=== PATIENT | male | born 1980 | race Caucasian/White ===

== ENCOUNTER 2020-12-09 21:33 | Emergency (ER) | payer OTHER, SELFPAY ==
[2020-12-09 21:35] VITALS: BP 184/116; PULSE 81; RESP 15; TEMP 36.3; O2SAT 97; BMI 40.6
--- NOTE | 2020-12-09 22:16 | RAD_ITS ---
STUDY: X-RAY - RIGHT KNEE REASON FOR EXAM: Male, 39 years old. knee pain TECHNIQUE: 4 view(s) of the knee. COMPARISON: None. FINDINGS: Normal visualized distal femur. Normal visualized proximal tibia and fibula. Normal proximal tibiofibular articulation. Normal medial femorotibial compartment. Normal lateral femorotibial compartment. Normal patellofemoral articulation. The soft tissue structures are unremarkable. RAD/Knee 4 or More Views IMPRESSION: Normal x-ray examination of the knee. Electronically Signed: Jose Lee DO at 22:51 EDT Tel , Service support ,
--- NOTE | 2020-12-09 22:17 | EX.ED.DYSGE1 ---
HPI History of Present Illness Chief Complaint: Lower Extremity Injury Narrative Narrative: 39-year-old male presenting with nontraumatic right knee pain. He states he started having swelling this morning. He denies any injury. He is able to ambulate. He states it does not particularly hurt that bad. He used Tylenol and Aleve today. He also put icy hot on his knee. Patient feels otherwise well. He has no history of gout. PFSH PFSH Home Medications naproxen [Naprosyn] 500 mg PO BID #30 tab 12/09/20 [Rx Last Taken Unknown] Allergy/AdvReac Type Severity Reaction Status Date / Time acetaminophen [From Vicodin] Allergy Upset Verified 12/09/20 21:34 Stomach hydrocodone [From Vicodin] Allergy Upset Verified 12/09/20 21:34 Stomach Surgical History Hx of tonsillectomy Social History Smoking Status: Current every day smoker tobacco type: cigarettes ROS ROS ED Constitutional Constitutional ED: Denies chills or fever(s) Eyes Eyes: Denies blurry vision or change in vision ENT ENT ED: Denies ear pain or rhinorrhea Cardiovascular Cardiovascular: Denies chest pain or palpitations Respiratory/Chest Respiratory/Chest: Denies cough, dyspnea or sputum Gastrointestinal Gastrointestinal: Denies abdominal pain, nausea or vomiting Genitourinary Genitourinary ED: Denies dysuria or hematuria Musculoskeletal Musculoskeletal: Reports other Details: Right knee pain and swelling Integumentary Denies abscess or rash EXAM Physical Exam Const Vital Signs: 12/09/20 21:35 Temperature 97.3 F L Temperature Source Temporal Pulse Rate 81 Respiratory Rate 15 Blood Pressure 184/116 H Blood Pressure Mean 138 Pulse Ox 97 Oxygen Delivery Method Room Air Positive well nourished General Appearance ED: NAD HEENT Reports moist mucous membranes Negative for trauma Eyes PERRL and EOMs intact bilaterally Resp normal respiratory effort Cardio regular rate and regular rhythm Extremity Extremity Narrative: Right knee is swollen. There is minimal tenderness to palpation. Patient able to flex and extend his knee although there is some limitation in full extension and full flexion. No ligament laxity. Neuro oriented x3 Sensorium / Orientation: alert Psych mental status grossly normal Skin no rashes or lesions noted and no wounds MDM MDM MDM Narrative Medical decision making narrative: Patient presenting with right knee swelling. He does not appear to have any significant pain. He is able to range his right knee. He has no systemic signs or symptoms of a septic knee. He denies any trauma to the knee. I did obtain x-ray of the right knee which on my interpretation shows no acute process. The radiologist does agree. Patient is placed in an [place]mond wrap. He is counseled on ice and elevation. I did give him follow-up with orthopedics. Patient stable his discharge at this time. Impression: 1. Right knee sprain Radiography Diagnostic Testing: Radiology Impression Knee X-Ray 12/09/20 22:16 IMPRESSION: Normal x-ray examination of the knee. Electronically Signed: Jose Lee DO at 22:51 EDT Tel , Service support , Discharge Plan Triage Chief Complaint: Lower Extremity Injury ED Provider: Westley Caraballo Dx/Rx/DC Orders Instructions: ED Knee Sprain Prescriptions: New naproxen [Naprosyn] 500 mg tablet 500 mg PO BID Qty: 30 RF: 0 Primary Care Provider: Asad Acosta Referrals: Dm Bledsoe DO [STAFF PHYSICIAN] - As soon as possible Asad Acosta [Primary Care Provider] - Disposition Disposition: Home, Self Care Discharge Date/Time: 12/09/20 23:11
[2020-12-09 23:07] VITALS: BP 159/103; PULSE 68; RESP 15
== END 2020-12-09 23:11 | disposition home or self-care (01) ==
PROVIDERS: Emergency Provider Student in an Organized Health Care Education/Training Program; PCP Internal Medicine
DX: S83.91XA Sprain of unspecified site of right knee, initial encounter (principal); F17.210 Nicotine dependence, cigarettes, uncomplicated; X58.XXXA Exposure to other specified factors, initial encounter
CPT/HCPCS: 73564; 99282

== ENCOUNTER → 2025-03-18 | Outpatient (CLI) | payer OTHER, SELFPAY ==
[2025-03-18 10:51] LABS: Cholesterol 148 mg/dL (<=200); Low Density Lipoprotein Calc. 92 mg/dL; Triglycerides 127 mg/dL; Very Low Density Lipoprotein 25 mg/dL (5-40); cholesterol:hdl ratio screen 4.90
== END | disposition home or self-care (01) ==
PROVIDERS: PCP Nurse Practitioner Family; Referring Provider Internal Medicine Cardiovascular Disease; Visit Provider Internal Medicine Cardiovascular Disease
DX: R56.9 Unspecified convulsions (principal); R94.31 Abnormal electrocardiogram [ECG] [EKG]; I10 Essential (primary) hypertension
CPT/HCPCS: 36415; 80061

== ENCOUNTER → 2025-04-09 | Outpatient (CLI) | payer OTHER, SELFPAY | END | disposition home or self-care (01) | LOC: CVS 06:10 | PROVIDERS: PCP Nurse Practitioner Family; Referring Provider Internal Medicine Cardiovascular Disease; Visit Provider Internal Medicine Cardiovascular Disease | DX: R94.31 Abnormal electrocardiogram [ECG] [EKG] (principal); R56.9 Unspecified convulsions; I10 Essential (primary) hypertension | CPT/HCPCS: 78452; 93017; A9500; A4216; J2785 ==

== ENCOUNTER → 2025-04-20 | Outpatient (CLI) | payer OTHER, SELFPAY ==
--- NOTE | 2025-04-20 09:51 | ECHOD_ITS ---
Reason For Study ECHO/Echo Complete
== END | disposition home or self-care (01) ==
LOC: CVS 09:48
PROVIDERS: PCP Nurse Practitioner Family; Referring Provider Internal Medicine Cardiovascular Disease; Visit Provider Internal Medicine Cardiovascular Disease
DX: R94.31 Abnormal electrocardiogram [ECG] [EKG] (principal); R56.9 Unspecified convulsions; I10 Essential (primary) hypertension
CPT/HCPCS: 93306